=== PATIENT | male | born 1980 | race Caucasian/White ===

== ENCOUNTER 2017-01-18 05:00 | Emergency (ER) | payer SELFPAY ==
[2017-01-18 05:10] VITALS: BP 139/89
[2017-01-18] MEDS ORDERED: ASPI-621 PO (05:18)
[2017-01-18] MEDS ORDERED: IBUP600T16 PO (05:27)
[2017-01-18] MEDS ORDERED: CYCL5TAB PO (05:27)
--- NOTE | 2017-01-18 05:27 | PHYS DOC ---
Adult General Chief Complaint Chief Complaint: BACK PAIN - NO INJURY HPI HPI Patient is a 36 year old male who presents with lower back pain. The patient reports history of chronic back pain, worse over the past 3 days. Reports aching pain to lumbar back, radiates down left lower extremity, some numbness to lateral/posterior leg. He denies any recent trauma or heavy lifting, but he does routinely lift moderate weight at his job with [employer]. He denies fevers/chills, abdominal pain, nausea, vomiting, dysuria/hematuria, extremity numbness/weakness, bowel/bladder incontinence or retention, saddle anesthesia, extremity numbness/weakness. Similar to previous pain but no extremity symptoms in the past. No back surgeries. He has been taking excedrin without relief of symptoms. Review of Systems Review of Systems Constitutional: Denies fever or chills Eyes: Denies change in visual acuity HENT: Denies nasal congestion or sore throat Respiratory: Denies cough Cardiovascular: Denies chest pain GI: Denies abdominal pain, nausea, vomiting : Denies dysuria or hematuria Musculoskeletal: Reports back & lower extremity pain Integument: Denies rash Neurologic: Denies headache, focal weakness or sensory changes All other systems were reviewed and found to be within normal limits, except as documented in this note. Allergies Allergies Allergies Coded Allergies Type Severity Reaction Last Updated Verified No Known Drug Allergies 01/18/17 No Physical Exam Physical Exam Constitutional: Well developed, well nourished, no acute distress, non-toxic appearance. HENT: Normocephalic, atraumatic, bilateral external ears normal, oropharynx moist, nose normal. Eyes: conjunctiva normal, no discharge. Neck: supple, no stridor. Cardiovascular: RRR, no murmurs, no edema. Lungs & Thorax: LCTAB, no wheezing, no respiratory distress. Abdomen: soft, nontender, nondistended. Skin: Warm, dry, no erythema, no rash. Back: L4-L5 lumbar spine tenderness without step offs, bilateral paraspinous muscle tenderness, no CVA tenderness. Extremities: No focal bony tenderness, no edema. distal pulses palpable bilaterally, symmetric strength/sensation to lower extremities Neurologic: Alert and oriented X 3, no focal deficits noted. Psychologic: Affect normal, judgement normal, mood normal. EKG EKG [] Radiology/Procedures Radiology/Procedures [] Course & Med Decision Making Course & Med Decision Making Pertinent Labs and Imaging studies reviewed. (See chart for details) The patient presents with lumbar back pain with sciatica. Gave ibuprofen, will discharge with ibuprofen & flexeril. Recommend rest, hydration, ibuprofen for pain & flexeril for muscle spasm, apply heat & do gentle stretches. Follow up with PCP if not improving in 1-2 weeks. May need MRI. Come back for symptoms of cauda equina syndrome or otherwise worsening condition. Discharged home in stable condition. [] Dragon Disclaimer Dragon Disclaimer This electronic medical record was generated, in whole or in part, using a voice recognition dictation system. Departure Departure: Impression: Primary Impression: Sciatica Disposition: HOME, SELF-CARE Condition: STABLE Patient Instructions: Sciatica with [facility] Additional Instructions: You were seen in the emergency department today for back pain. Please rest, take ibuprofen & flexeril, do gentle stretches, apply heating pad. Follow up with a primary care doctor if not improving in 1-2 weeks. You might need an MRI. Come back for loss of control of bowels or bladder, numbness or weakness in legs, numbness in groin, any otherwise worsening condition. Scripts Cyclobenzaprine Hcl (CYCLOBENZAPRINE HCL) 5 Mg Tablet 1 TAB PO TID Y for MUSCLE SPASMS, #10 TAB Prov: SAFIA DAIGLE MD 01/18/17 Ibuprofen (IBUPROFEN) 600 Mg Tablet 600 MG PO Q8HRS Y for PAIN, #20 TAB Prov: SAFIA DAIGLE MD 01/18/17 SAFIA DAIGLE MD Jan 18, 2017 05:27
[2017-01-18] MEDS ORDERED: IBUPROFEN 600 MG TABLET. PO ONE (05:30)
[2017-01-18] MEDS ORDERED: CYCLOBENZAPRINE 10MG 4TABLET STARTPACK PO ONE ×2 (05:31→05:45)
== END 2017-01-18 05:42 | disposition home or self-care (01) ==
LOC: ER 05:00
DX: M54.42 Lumbago with sciatica, left side (principal); M54.41 Lumbago with sciatica, right side; G89.29 Other chronic pain
CPT/HCPCS: 99283